=== PATIENT | female | born 1970 | race Caucasian/White ===

== ENCOUNTER 2017-01-14 19:17 | Emergency (ER) | payer MEDICAID ==
[~2017-01-14] VITALS: Ht 157.5 cm; Wt 81.6 kg
--- NOTE | 2017-01-14 20:00 | Emergency Room Report ---
History of Present Illness Time Seen by 1999 Presenting Problem in Triage Pt arrived:Walked Presenting Problem:FOR 2 WEEKS NOTICED SWELLING IN FEET, ANKLES, HANDS AND KNEES AND SHOULDERS PAIN IN JOINTS. 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 N Clinical Suspician of Infection? N Mental Status: 1 - Regular (Normal Baseline) Sepsis Risk:Possible Sepsis Risk Have you (or family members/close friends) recently traveled outside the [place]? N If Yes, where/when: Have you had exposure to infectious disease within the past month? N TB? Other? Specify: Source patient, RN notes reviewed, family, old records Exam Limitations no limitations Comment over the last 2 weeks has symetrial jt pain with pending appt with rheum in apr - no fever and no rash Cardiac Chest Pain Chest pain indicative of cardiac No Timing/Duration this evening Severity moderate ALLERGIES Coded Allergies: diphenhydramine (Mild, RASH, ITCH 01/14/17) tramadol (Mild, RASH, ITCH 01/14/17) Home Medications Reported Medications No Known Home Medications History Medical History General Angina: No GA: No Hyperlipidemia? No CHF? No COPD? No Asthma? No Hernia? No CVA? No Seizures? Yes Diabetes? No UTI? No Stones? No GB Disease: No Hepatitis? No Cataracts? No Glaucoma? No TB? 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 Respiratory denies cough, denies shortness of breath, denies wheezing Cardiovascular denies chest pain, denies palpitations, denies syncope Gastrointestinal denies abdominal pain, denies diarrhea, denies vomiting Genitourinary denies: dysuria, frequency, hesitancy, hematuria. Musculoskeletal see HPI, denies back pain, joint pain, denies joint swelling, denies neck pain Skin denies rash Psychiatric/Neurological denies headache, denies seizure Physical Exam Vital Signs Vital Signs Date Time Temp Pulse Resp B/P Pulse O2 O2 Flow FiO2 Ox Delivery Rate 01/15 2108 98.4 105 20 138/48 97 01/14 2051 20 01/14 1947 98.4 105 20 138/48 97 - WBC >12,000 or <4,000 or 10% bands? 2 or more SIRS Criteria Met? B/P:138/48 MAP:78 Creatinine >2.0? UA output<0.5ml/kg/hr for 2 hrs? Platelet count >100,000? Lactate >2.0mmol/1? INR >1.2 or PTT > than 60 sec? Evidence of Organ Dysfunction? Provider documented clinical suspician of infection? N Sepsis Criteria Count: 2 Sepsis Risk: Possible Sepsis Risk General Appearance no apparent distress Eye Exam - bilateral eye PERRL, bilateral eye EOMI Ear, Nose, Throat normal ENT inspection Neck supple Respiratory Status No: respiratory distress. Cardiovascular regular rate/rhythm Peripheral Pulses Pulses normal Yes Gastrointestinal soft Extremities normal inspection, tender jts w/o erythema and no reddness /warmth Strength 4 Upper Ext (L), 4 Upper Ext (R), 4 Lower Ext (L), 4 Lower Ext (R) Neurologic alert, outsoles channel opener II-XII nml as tested, no motor/sensory deficits Reflexes Reflexes normal No Mental status normal mood/affect Skin intact, no rash cons.w/shingles Medical Decision Making LABS/Meds/Orders Pt receiving controlled substance in ED? No Results/Orders Laboratory Tests 01/14/17 2030: MCH 29.0 01/14/17 2030: Sodium 140, Potassium 4.0, Chloride 106, Carbon Dioxide 28, BUN 13, Creatinine 1.0, Estimated Creat Clear 88, Estimated GFR (MDRD) 59, Glucose 134 H, Uric Acid 3.8, Calcium 8.7, Total Bilirubin 0.2, AST 12 L, ALT 23, Alkaline Phosphatase 97, Total Protein 7.3, Albumin 3.1 L, Globulin 4.2 H, Albumin/ Globulin Ratio 0.7 L, WBC 6.0, RBC 4.45, Hgb 12.9, Hct 39.9, MCV 89.6, RDW 12.9 , Plt Count 340, MPV 7.9, Gran % 57.0, Gran # 3.4, Lymphocytes % 20.8, Monocytes % 5.9, Eosinophils % 14.5 H, Basophils % 1.8, Lymphocytes # 1.3, Monocytes # 0.4, Eosinophils # 0.9 H, Basophils # 0.1, PUBS MCHC 32.4, ESR 52 H, Rheumatoid Factor Titer Pending, ISABELLA Screen Pending, Lyme Disease IgG/IgM Pending, Lyme IgM 41 kDa Band Pending 01/14/17 2005: Urine Color YELLOW, Urine Appearance CLEAR, Urine pH 7.5, Ur Specific [place] 1.015, Urine Protein NEGATIVE, Urine Ketones NEGATIVE, Urine Blood NEGATIVE, Urine Nitrate NEGATIVE, Urine Bilirubin NEGATIVE, Urine Urobilinogen 0.2, Ur Leukocyte Esterase NEGATIVE, Urine WBC OCC, Ur Squamous Epith Cells 10-20, Urine Glucose NEGATIVE 01/14/17 2001: Uric Acid Cancelled, ESR Cancelled, Rheumatoid Factor Cancelled, ISABELLA Screen Cancelled Current Medication Orders Sig/Esteban Start time Last Medication Dose Route Stop Time Status Admin Ketorolac 0 .STK-MED ONE 01/14 2046 DC Tromethamine .ROUTE Methylprednisolone 0 .STK-MED ONE 01/14 2046 DC Sodium Succinate .ROUTE Sodium Chloride 1,000 ML .STK-MED ONE 01/14 2046 DC IV Ketorolac 30 MG ONCE ONE 01/14 2045 DC 01/14 Tromethamine IV 01/14 Methylprednisolone 125 MG ONCE ONE 01/14 2045 DC 01/14 Sodium Succinate IV 01/14 Sodium Chloride 1,000 ML .Q1H1M 01/14 2045 AC 01/14 IV 01/14 Sodium Chloride 10 ML PRN PRN 01/14 2045 AC IV 01/15 2037 Sodium Chloride 10 ML PRN PRN 01/14 2015 AC IV 01/15 2001 Orders Procedure Date/time Status RHEUMATOID SCREEN/TITER 01/14 UNK Active ANTINUCLEAR AB 01/14 UNK Active LYME DISEASE AB 01/14 2025 Active URINALYSIS/COMPLETE 01/14 2002 Complete IV SALINE LOCK 01/14 2001 Active URIC ACID 01/14 2001 Complete SED RATE 01/14 2001 Complete C-REACTIVE PROTEIN 01/14 2001 Complete COMPLETE METABOLIC PANEL 01/14 2001 Complete CBC WITH AUTO DIFF 01/14 2001 Complete Departure Departure Time of Disposition 2125 Disposition DC Home or Self Care(routine) Clinical Impression Primary Impression: Polyarthralgia Condition STABLE Patient Instructions DI for Arthralgia Additional Instructions use meds and see pcp for follow up Discharge Counseling Counseled pt/family regarding diagnosis, test results, medications/RX, follow up needs Prescriptions Current Visit Scripts Prednisone (Prednisone 20MG) 20 MG PO BID #12 TAB ED Critical Care Critical Care No at 8980
[2017-01-14 20:22] LABS: URINE BILIRUBIN - DIPSTICK NEGATIVE (NEG); URINE BLOOD NEGATIVE (NEG)
[2017-01-14 20:39] LABS: HEMOGLOBIN 12.9 g/dL (12.2-16.2); LYMPH # 1.3 K/mm3 (0.7-4.5); LYMPH % 20.8 % (10-50.0)
[2017-01-14] MEDS ORDERED: PREDNISONE 20MG20 MG PO (21:32)
[2017-01-14 22:15] VITALS: BP 138/48
[2017-01-16 08:44] LABS: RA Latex Turbid. 52.7 IU/mL (0.0-13.9)
[2017-01-17 09:38] LABS: Antinuclear Antibodies, IFA Negative (.)
--- OUTSIDE RECORDS SUMMARY | 2017-01-19 22:44 | External Medical Summary Rpt ---
Author Author CHRIS Lopez, CHRIS Lopez Organization [employer] Address Unknown Phone Unavailable
--- OUTSIDE RECORDS SUMMARY | 2017-01-19 22:44 | External Medical Summary Rpt | CCD ---
Author Author , CHRIS PEREZ Address Unknown Phone [email or web address] Care Team Providers Care Retail Supervisor Name Role Phone PS[facility]ATRIC Unavailable Unavailable [facility], [facility] PHYSICIAN Unavailable Unavailable PRACTICE L, [facility] DONALD BENNETT Unavailable Unavailable [facility] Unavailable Unavailable [facility] CALDERON Unavailable Unavailable Purpose Continuity of Care Document - 07-05-2016 through 2016 Problems Code Diagnosis DOS Provider Status M542 CERVICALGIA 12-13-2016 [facility] [id number] PAIN IN 12-13-2016 [facility] M1990 UNSPECIFIED 11-29-2016 [facility] PHYSICIAN OSTEOARTHRI PRACTICE L TIS UNSPECIFIED SITE [id number] PAIN IN 11-29-2016 [facility] PHYSICIAN PRACTICE L Z136 ENCOUNTER 11-29-2016 [facility] SCREENING PHYSICIAN FOR PRACTICE L CARDIOVASCU LAR DISORDERS H524 PRESBYOPIA 07-05-2016 [facility] Na ND Rx Da Fi Fi Am Da Di Ph RX Ph St me C No te ll ll ou ys ag ar # ys at rm s nt no ma ic us Or Da si cy ia de te s n re d AM 00 09 10 30 30 00 WA Ac IT 78 -0 -0 .0 00 L- ti RI 11 7- 6- 00 07 MA ve PT 48 20 20 50 RT YL 61 17 17 83 IN 0 60 PH E AR HC MA L CY 10 #5 MG 91 TA B DI 16 08 09 60 30 00 WA Ac CL 57 -2 -2 .0 00 L- ti OF 10 8- 2- 00 07 MA ve EN 20 20 20 50 RT AC 15 17 17 62 0 83 PH SO AR D MA EC CY 75 #5 91 MG TA B Procedures Procedure DOS Code Location Performer Comment RADEX [address] [facility] SP[facility] [address] [place] [address] HOSPITAL 4 OR 5 VIEWS RADEX [address] HOSPITAL VIEWS OPHTH [address] [facility] 7 XM&EVAL COMPRE NEW PT 1/> VST Encounters Encounter Start End Date Code Location Performer Type Date [facility] 7 7 [facility] T OFFICE [address] [place] [address] 7 PHYSICIAN T NEW 30 PRACTICE MINUTES L
--- OUTSIDE RECORDS SUMMARY | 2017-01-19 22:44 | External Medical Summary Rpt | CCD ---
Demographics Preferred Language Chadian Marital Status Unknown Confucianist Affiliation Unknown Race Unknown Ethnic Group Unknown Author Author , CHRIS PEREZ Address Unknown Phone Immunization No patient found.
--- OUTSIDE RECORDS SUMMARY | 2017-01-19 22:44 | External Medical Summary Rpt | CCD ---
Author Author , CHRIS PEREZ Address Unknown Phone [email or web address] Care Team Providers Care Dictionary Editor Name Role Phone [facility] Unavailable Unavailable [facility] PHYSICIAN Unavailable Unavailable PRACTICE L, [facility] DONALD BENNETT Unavailable Unavailable [facility] CALDERON Unavailable Unavailable [facility] CALDERON Unavailable Unavailable Purpose Continuity of Care Document - 07-05-2016 through 2016 Problems Code Diagnosis DOS Provider Status M54.2 CERVICALGIA 12-14-2016 M79.642 PAIN IN 12-14-2016 LEFT HAND M542 CERVICALGIA 12-13-2016 [facility] [id number] PAIN IN 12-13-2016 [facility] M1990 UNSPECIFIED 11-29-2016 [facility] PHYSICIAN OSTEOARTHRI PRACTICE L TIS UNSPECIFIED SITE [id number] PAIN IN 11-29-2016 [facility] RIGHT HAND PHYSICIAN PRACTICE L Z136 ENCOUNTER 11-29-2016 [facility] SCREENING PHYSICIAN FOR PRACTICE L CARDIOVASCU LAR DISORDERS H524 PRESBYOPIA 07-05-2016 [facility] Medications Na ND Rx Da Fi Fi Am Da Di Ph RX Ph St me C No te ll ll ou ys ag ar # ys at rm s nt no ma ic us Or Da si cy ia de te s n re d AM 00 09 30 30 00 WA Ac IT 78 [...] Procedure DOS Code Location Performer Comment RADEX 8[address] [facility] SPINE [address] [facility] 4 OR 5 V[address]WS RADEX [address] HOSPITAL VIEWS OPHTH [address] [facility] 7 XM&EVJEAN CYR NEW PT 1/> VST Encounters Encounter Start End Date Code Location Performer Type Date [facility] [address] T OFFICE [address] [place] [address] 7 PHYSICIAN T BETTYE 30 PRACTICE MINUTES L
--- OUTSIDE RECORDS SUMMARY | 2017-01-19 22:44 | External Medical Summary Rpt | CCD ---
Author Author , CHRIS PEREZ Address Unknown Phone [email or web address] Care Team Providers Care Clinical Project Coordinator Name Role Phone [facility] Unavailable Unavailable HOSPITAL, [facility] PHYSICIAN Unavailable Unavailable PRACTICE L, [place] [facility] PRACT[facility] L DONALD BENNETT Unavailable Unavailable [facility] CALDER[facility] Unavailable Unavailable [facility] CALDERON Unavailable Unavailable Purpose Continuity of Care Document - 07-05-2016 through 2016 Problems Code Diagnosis DOS Provider Status M54.2 CERVICALGIA 12-14-2016 M79.642 PAIN IN 12-14-2016 LEFT HAND M542 CERVICALGIA 12-13-2016 [facility] [id number] PAIN IN 12-13-2016 [facility] M1990 UNSPECIFIED 11-29-2016 [place] PHYSICIAN OSTEOARTHRI PRACTICE L TIS UNSPECIFIED SITE [id number] PAIN IN 11-29-2016 [place] RIGHT HAND PHYSICIAN PRACTICE L Z136 ENCOUNTER 11-29-2016 [place] SCREENING PHYSICIAN FOR PRACTICE L CARDIOVASCU LAR [...] Procedure DOS Code Location Performer Comment RADEX 13356 [facility] SPINE 7 [facility] 4 OR 5 VIEWS RADEX [address] HOSPITAL VIEWS OPHTH [address] [facility] 7 XM&EVEJAN CYR NEW PT 1/> VST Encounters Encounter Start End Date Code Location Performer Type Date [facility] [address] T OFFICE [address] [place] [address] 7 PHYSICIAN T BETTYE 30 PRACTICE MINUTES L
--- OUTSIDE RECORDS SUMMARY | 2017-01-19 22:44 | External Medical Summary Rpt | CCD ---
Demographics Preferred Language Hungarian Marital Status Unknown Rastafari Affiliation Unknown Race Unknown Ethnic Group Unknown Author Author , CHRIS PEREZ Address Unknown Phone Immunization No patient found.
--- OUTSIDE RECORDS SUMMARY | 2017-01-19 22:44 | External Medical Summary Rpt | CCD ---
Author Author , CHRIS PEREZ Address Unknown Phone [email or web address] Care Team Providers Care Production Support Engineer Name Role Phone [facility] Unavailable Unavailable [facility], [facility] Unavailable Unavailable PRACTICE L, [facility] DONALD BENNETT Unavailable Unavailable [facility] Unavailable Unavailable [facility] CALDERON Unavailable Unavailable Purpose Continuity of Care Document - 07-05-2016 through 2016 Problems Code Diagnosis DOS Provider Status M542 CERVICALGIA 12-13-2016 [facility] [id number] PAIN IN 12-13-2016 [facility] M1990 UNSPECIFIED 11-29-2016 [facility] PH[facility] OSTEOARTHRI PRACTICE L TIS UNSPECIFIED SITE [id number] PAIN IN 11-29-2016 [facility] PHYSICIAN PRACTICE L Z136 ENCOUNTER 11-29-2016 [facility] SCREENING PHYSICIAN FOR PRACTICE L CARDIOVASCU LAR DISORDERS H524 PRESBYOPIA 07-05-2016 [facility] [facility] Medications Na ND Rx Da Fi Fi [...] Procedure DOS Code Location Performer Comment RADEX 71024 [facility] [address] [place] [address] HOSPITAL 4 OR 5 VIEWS RADEX [address] HOSPITAL VIEWS OPHTH [address] [facility] 7 XM&EVAL COMPRE NEW PT 1/> VST Encounters Encounter Start End Date Code Location Performer Type Date [facility] 7 7 [facility] T OFFICE [address] [place] [address] 7 PHYSICIAN T NEW 30 PRACTICE MINUTES L
== END 2017-01-14 22:16 | disposition home or self-care (01) ==
LOC: ER 19:17
PROVIDERS: Emergency Medicine
DX: M25.572 Pain in left ankle and joints of left foot (principal); M25.571 Pain in right ankle and joints of right foot; M25.562 Pain in left knee; M25.561 Pain in right knee; M25.542 Pain in joints of left hand; M25.541 Pain in joints of right hand; Z88.8 Allergy status to other drugs, medicaments and biological substances; F17.210 Nicotine dependence, cigarettes, uncomplicated

== ENCOUNTER → 2017-02-20 | Outpatient (CLI) | payer MEDICAID ==
[~2017-02-20] MED LIST: PREDNISONE 20MG20 MG PO
--- NOTE | 2017-02-20 13:19 | RADIOLOGY REPORT PS360 ---
DIG MAMM-SCREEN MARY LOU W/CAD CAD Screening ORDERING PHYSICIAN : Fortino Kay MD PATIENT AGE: 47 years GENDER: Female COMPARISON: No previous studies for comparison.- Baseline exam INDICATION: Routine screening no hormones. No new complaints. Noncontributory family history. TECHNIQUE: Standard CC and MLO images were obtained. R2 CAD reviewed. FINDINGS: Mild to moderate bilateral... Most evident superior central breast bilaterally. No previous studies for comparison. Baseline exam CAD computer review reveals no areas of concern. Visual review reveals no dominant mass nor suspicious calcifications either breast. Minor asymmetry. Routine Bilateral follow-up in one year adequate. IMPRESSION: No areas of concern this baseline mammogram . Follow-up in one year recommended BI-RADS CATEGORY: 1_Negative 1 RECOMMENDED FOLLOWUP: 12M 12 MONTH FOLLOW-UP (A letter has been sent to the patient regarding results of the study.)
== END ==
LOC: RAD 09:59
DX: Z12.31 Encounter for screening mammogram for malignant neoplasm of breast (principal)
CPT/HCPCS: G0202